=== PATIENT | male | born 1965 | race Caucasian/White ===

== ENCOUNTER 2017-05-25 09:09 | Emergency (ER) | payer MEDICAID ==
[~2017-05-25] VITALS: Ht 177.8 cm; Wt 113.0 kg
[2017-05-25] MEDS ORDERED: IBUPROFEN 600MG TABLET PO ONE (10:15)
[2017-05-25 11:19] VITALS: BP 145/88
== END 2017-05-25 12:45 | disposition home or self-care (01) ==
LOC: ER 10:39
DX: M17.11 Unilateral primary osteoarthritis, right knee (principal); R60.0 Localized edema; Z87.891 Personal history of nicotine dependence; Z91.048 Other nonmedicinal substance allergy status
CPT/HCPCS: 73562; 93971; 99284; Z7610